=== PATIENT | female | born 1995 | race Caucasian/White ===

== ENCOUNTER 2019-11-06 22:35 | Outpatient (CLI) | payer OTHER, MEDICAID, SELFPAY ==
[2019-11-06 22:56] VITALS: BP 118/67; PULSE 112; TEMP 37.1; O2SAT 99
[2019-11-06 23:05] VITALS: BMI 37.3
--- NOTE | 2019-11-07 07:32 | OB.TRI.PN ---
Progress Notes Date of Service: 11/06/19 Progress Note: pt sees dr elsewhere and presents with 6 contractions in the last hour, no vb of lof. fhts reassuring. no contractions on the monitor, patient appears comfortable per nursing, provided reassurance of stability and recommend fu with her regular provider - Problem List (1) contractions Status: Acute
== END 2019-11-06 23:59 | disposition home or self-care (01) ==
PROVIDERS: Referring Provider Obstetrics & Gynecology; Visit Provider Obstetrics & Gynecology
DX: O62.9 Abnormality of forces of labor, unspecified (principal); Z3A.00 Weeks of gestation of pregnancy not specified
CPT/HCPCS: 59025; 59050; 94760; 99218; G0378

== ENCOUNTER 2022-06-18 12:30 | Outpatient (RCR) | payer MEDICAID, SELFPAY ==
--- NOTE | 2022-05-25 14:37 | HP.PTEVAL ---
Patient's Visit Information FLAQUITO RICHARD is a 27 year old F referred to Physical Therapy by NAZ Fu with a diagnosis of PFS L. Date of Evaluation: 05/25/22 Physical Therapist: Alton Vu, ROSST, OCS, CSCS - Visit Plan Frequency: 3x /Week Duration: 2-4 Weeks Plan: 3x/week for 3-4 weeks for. 1. ITB rollout and stretch L. 2. hip and core strength to HEP quickly. 3. general machine based strength program for posture, hips, LE and core adn progress to I in gym as patient will join a gym. Monitor need for orthotics. - Subjective L knee was wanting to give out. Sharp pain and for several weeks now, insidious. No pattern to it. Activities are normal. 0-8/10 pain and transient. Not happened in a week. Got brace form doctor and it helps. usually was every couple days. 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 Not limiting at work right now. Sleep is not a problem. Basic aDLs are good. has two steps at hoome and not a problem. - Pain L knee pain Pain Intensity (Out of 10): 0 Pain Intensity Range: 0, 8 Comment: sometimes lingers 10 seconds. - Objective L pes planus >R moderately. Walks normal today without gait deviations. Steps reciprocal with one rail. Transfers I. - ant drawer. - bounce home. slight + L patellar grind. B knee AROM WFL and without pain. Hip arom WFL. reflexes 2/3 patella and achilles. Sensation LE WNL to gross light touch. has obvious weakness in core and hip rotators as she IR with resisted hip flexion. 3+ hip rotations, 3+ abduction adn extension. Knee ext not painful today and 4-/5 B flexion 4-. ankles 4+/5. Not able to ellicit pain today but patient has obvious hip and core weakness leading to malrotation at hip combined with pes planus L and tight ITB creating PFS. - Balance/Special Test Scores Lower Extremity Functional Score: 66 - Goals Goal 1:: Pain in L knee abolished for 2 weeks Goal Time Frame: 2-4 Weeks Goal 2:: Patient I in ITB stretch, hip and core strength and overall general ex for health of body Goal Time Frame: 4-6 Weeks Goal 3:: Pt feel 100% back to normal knee Goal Time Frame: 4-6 Weeks Goal 4:: LEFS 72 Goal Time Frame: 4-6 Weeks - Rehabilitation Potential Physical Therapy Diagnosis: l knee pain PFS. Rehabilitation Potential: Good - Anticipated Interventions Patient/Client Instruction: Educate patient on: Condition, Plan of Care For the Purpose of:: To decrease pain, To increase ROM, To improve nutrient delivery to tissue, To improve muscle performance and motor function, To increase tolerance to activity/condition/position Therapeutic Exercise to Include: Strength training, Postural training, Flexibilty training, Dynamic Lumbar Stabilization For the Purpose of:: To decrease pain, To increase ROM, To improve nutrient delivery to tissue, To improve muscle performance and motor function Manual Therapy Techniques to Include: Soft tissue mobilization For the Purpose of:: To decrease pain, To improve nutrient delivery to tissue, To improve muscle performance and motor function, To increase tolerance to activity/condition/position Thank you for the opportunity to evaluate your patient. For Medicare and Medicare HMO plans, please review the plan of care and approve it. It will need to be FAXED BACK to us at [phone] for Medicare purposes. For Medicare only, by signing this I certify the plan of care. Please let me know if there are questions or concerns regarding this plan of care. Physician Signature: Date:
--- NOTE | 2022-06-18 13:19 | HP.PTDCSUM ---
It has been my pleasure to treat FLAQUITO RICHARD referred by NAZ Fu, with the diagnosis of Left PFS for a total of 8 visit(s). Discharge Date: 06/18/22 Please see the following information for a summary of their discharge status. Subjective: It's helping. I am getting stronger and I need to join which I will. Has not had any giving out lately. Pain is not an issue. L knee pain Pain Intensity (Out of 10): 0 % Improvement: 100 Objective/Function: Full aROM without pain, walking normal, jogging well, jumping and squattign without pain. Goal 1:: Pain in L knee abolished for 2 weeks Goal Progress: Goal Met Goal 2:: Patient I in ITB stretch, hip and core strength and overall general ex for health of body Goal Progress: Goal Met Goal 3:: Pt feel 100% back to normal knee Goal Progress: Goal Met Goal 4:: LEFS 72 Goal Progress: Goal Met Plan: d/c to HEP If there are questions or concerns regarding this patient's physical therapy, please feel free to call me at [phone]. Thank you for the referral of this patient. Sincerely, Alton Vu, DPT, OCS, CSCS Balance/Gait/Functional tests - Balance/Special Test Scores Lower Extremity Functional Score: 72
== END 2022-06-18 13:35 | disposition home or self-care (01) ==
LOC: PT 12:30
PROVIDERS: PCP Nurse Practitioner Family
DX: M22.2X2 Patellofemoral disorders, left knee (principal)
CPT/HCPCS: 97110; 97161; 97164

== ENCOUNTER 2022-07-09 11:31 | Outpatient (RCR) | payer MEDICAID, SELFPAY ==
--- NOTE | 2022-07-09 12:21 | HP.PTEVAL_ITS ---
Patient's Visit Information FLAQUITO RICHARD is a 27 year old F referred to Physical Therapy by Dr. Denton Hansen DO with a diagnosis of SACRAL SPRAIN. Date of Evaluation: 07/09/22 Physical Therapist: Jovana Alan, PT, Cert MDT - Visit Plan Frequency: 2-3x /Week Duration: 4-6 Weeks Plan: *CHECK AUTH NEXT VISIT: RECORD # OF VISITS APPROVED AND EXPIRATION DATE. CHECK CODES APPROVED WITH POC*. POSTURE CORRECTION/STRENGTHENING, INSTRUCTION IN APPROPRIATE BODY MECHANICS AND ACTIVITY MODIFICATIONS. DLS STARTING WITH A NEUTRAL SPINE PROGRESSING ROM TOLERATED. CISCO LE ROM, STRETCHING AND STRENGTHENING. HEP INSTRUCTION. 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 Disability: NO. Present symptoms: LOW BACK PAIN AND TAILBONE AREA PAIN. SOME L HIP PAIN AT TIMES BUT VERY MILD. Present since: ABOUT 3 WKS OR SO AGO. Pain Scale: WORST 9/10, LEAST 0/10. Currently: 5/10. Is it getting better, worse or staying the same: STAYING THE SAME. Commenced as a result of: NO APPARENT REASON. Symptoms at onset: SAME BUT MORE MILD AT ONSET. Worse: LAYING IN BED, PROLONGED SITTING, SOMETIMES PUTTING SHOES AND SOCKS AND PANTS ON, LIFTING AT WORK, SITTING ON ANYTHING HARD. ICE. SITTING ON BIKE SEAT. Better: STANDING AND WALKING. Disturbed sleep: YES. Previous history/Previous treatment: EPISODIC LBP SELF MANAGED. SOME L HIP PAIN IN CHILDHOOD - DX'D WITH LEG LENGTH discrepancy TREATED BY CHIROPRACTOR A LONG TIME AGO. Treatment this episode: CONSULT W/DR. HANSEN. PT REFERRAL. Coughing/sneezing/straining: NEGATIVE. Gait: NORMAL. Bowel or Bladder Dysfunction: NO. Accidents: NO. Unexplained weight loss: NO. Imaging: RECENT BACK, PELVIC AND HIP X-RAYS - NORMAL - SEE [facility] EMR AND DR. HANSEN'S NOTE. PMH/Recent major surgery: RECENT H/O L KNEE PAIN RESOLVED WITH PT. - Objective Sitting/Standing Posture: FAIR. FH. RSH'S. Lordosis: NORMAL. Lateral shift: NO. Relevant shift: N/A. Active Correction of posture: NE IN STANDING. Other Observations: INDEP GAIT AND TRANSFERS WITH NO GROSS DEVIATIONS NOTED. Sensory deficit: CISCO LE LIGHT TOUCH SENSATION GROSSLY INTACT AND SYMMETRICAL. ROM deficit: CISCO LE'S WFL BUT MILD HS AND GASTROC-SOLEUS COMPLEX TIGHTNESS. Motor deficit: 5/5 CISCO LE'S. Reflexes: 2/3 CISCO LE'S. Dural Signs: NEGATIVE CISCO LE'S. Lumbar mvmt loss: flex - NIL. ext - NIL. R SG - NIL. L SG - NIL. PATIENT C/O MILD TAILBONE AREA PAIN WITH LUMBAR EXTENSION AND L SG ROM TESTING. RESOLVES QUICKLY. Core strength: POOR. Palpation: MILD TENDERNESS WTIH PALPATION OF L345S1 REGIONS AND PARASPINAL MUSCLE SPASMS. TENDERNESS OF TAILBONE REGION WELL. TREATMENT: NEUROMUSCULAR REEDUCATION - INTRO TO RETRAINING OF MVMT AND POSTURE FOR SITTING, LYING AND STANDING ACTIVITIES. - Balance/Special Test Scores Oswestry Low Back Score: 11 - Goals Goal 1:: DECREASE C/O LOW BACK AND TAILBONE PAIN Goal Time Frame: 4-6 Weeks Goal 2:: IMPROVE PERSONAL CARE, LIFTING, SITTING, SLEEP, AND WORK/HOMEMAKING FUNCTION Goal Time Frame: 4-6 Weeks Goal 3:: INSTRUCT IN PROPHYLAXIS Goal Time Frame: 4-6 Weeks - Anticipated Interventions Patient/Client Instruction: Educate patient on: Condition, Plan of Care, Risk Factors For the Purpose of:: To improve self management Therapeutic Exercise to Include: Strength training, Body mechanics, Postural training, Flexibilty training, Neuromotor development, In an aquatic setting, Dynamic Lumbar Stabilization For the Purpose of:: To decrease pain, To increase ROM, To improve muscle performance and motor function, To increase tolerance to activity/condition/position, To improve ability of physical actions for h ome/community/work/leisure Ultrasound (thermal/non thermal): Yes For the Purpose of:: To improve nutrient delivery to tissue Thank you for the opportunity to evaluate your patient. For Medicare and Medicare HMO plans, please review the plan of care and approve it. It will need to be FAXED BACK to us at [phone] for Medicare purposes. For Medicare only, by signing this I certify the plan of care. Please let me know if there are questions or concerns regarding this plan of care. Physician Signature: Date:
--- NOTE | 2022-07-09 12:22 | HP.PTEVAL_ITS ---
Patient's Visit Information FLAQUITO RICHARD is a 27 year old F referred to Physical Therapy by Dr. Denton Hansen DO with a diagnosis of SACRAL SPRAIN. Date of Evaluation: 07/09/22 Physical Therapist: Jovana Alan, PT, Cert MDT - Visit Plan Frequency: 2-3x /Week Duration: 4-6 Weeks Plan: *CHECK AUTH NEXT VISIT: RECORD # OF VISITS APPROVED AND EXPIRATION DATE. CHECK CODES APPROVED WITH POC*. AQUATIC THERAPY FOR PAIN RELIEF, POSTURE CORRECTION/STRENGTHENING, INSTRUCTION IN APPROPRIATE BODY MECHANICS AND ACTIVITY MODIFICATIONS. DLS STARTING WITH A NEUTRAL SPINE PROGRESSING ROM TOLERATED. CISCO LE ROM, STRETCHING AND STRENGTHENING. HEP INSTRUCTION. 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 Present symptoms: LOW BACK PAIN AND TAILBONE AREA PAIN. SOME L HIP PAIN AT TIMES BUT VERY MILD. Present since: ABOUT 3 WKS OR SO AGO. Pain Scale: WORST 9/10, LEAST 0/10. Currently: 5/10. Is it getting better, worse or staying the same: STAYING THE SAME. Commenced as a result of: NO APPARENT REASON. Symptoms at onset: SAME BUT MORE MILD AT ONSET. Worse: LAYING IN BED, PROLONGED SITTING, SOMETIMES PUTTING SHOES AND SOCKS AND PANTS ON, LIFTING AT WORK, SITTING ON ANYTHING HARD. ICE. SITTING ON BIKE SEAT. Better: STANDING AND WALKING. Disturbed sleep: YES. Previous history/Previous treatment: EPISODIC LBP SELF MANAGED. SOME L HIP PAIN IN CHILDHOOD - DX'D WITH LEG LENGTH discrepancy TREATED BY CHIROPRACTOR A LONG TIME AGO. Treatment this episode: CONSULT W/DR. HANSEN. PT REFERRAL. Coughing/sneezing/straining: NEGATIVE. Gait: NORMAL. Bowel or Bladder Dysfunction: NO. Accidents: NO. Unexplained weight loss: NO. Imaging: RECENT BACK, PELVIC AND HIP X-RAYS - NORMAL - SEE [facility] EMR AND DR. HANSEN'S NOTE. PMH/Recent major surgery: RECENT H/O L KNEE PAIN RESOLVED WITH PT. - Objective Sitting/Standing Posture: FAIR. FH. RSH'S. Lordosis: NORMAL. Lateral shift: NO. Relevant shift: N/A. Active Correction of posture: NE IN STANDING. Other Observations: INDEP GAIT AND TRANSFERS WITH NO GROSS DEVIATIONS NOTED. Sensory deficit: CISCO LE LIGHT TOUCH SENSATION GROSSLY INTACT AND SYMMETRICAL. ROM deficit: CISCO LE'S WFL BUT MILD HS AND GASTROC-SOLEUS COMPLEX TIGHTNESS. Motor deficit: 5/5 CISCO LE'S. Reflexes: 2/3 CISCO LE'S. Dural Signs: NEGATIVE CISCO LE'S. Lumbar mvmt loss: flex - NIL. ext - NIL. R SG - NIL. L SG - NIL. PATIENT C/O MILD TAILBONE AREA PAIN WITH LUMBAR EXTENSION AND L SG ROM TESTING. RESOLVES QUICKLY. Core strength: POOR. Palpation: MILD TENDERNESS WTIH PALPATION OF L345S1 REGIONS AND PARASPINAL MUSCLE SPASMS. TENDERNESS OF TAILBONE REGION WELL. TREATMENT: NEUROMUSCULAR REEDUCATION - INTRO TO RETRAINING OF MVMT AND POSTURE FOR SITTING, LYING AND STANDING ACTIVITIES. - Balance/Special Test Scores Oswestry Low Back Score: 11 - Goals Goal 1:: DECREASE C/O LOW BACK AND TAILBONE PAIN Goal Time Frame: 4-6 Weeks Goal 2:: IMPROVE PERSONAL CARE, LIFTING, SITTING, SLEEP, AND WORK/HOMEMAKING FUNCTION Goal Time Frame: 4-6 Weeks Goal 3:: INSTRUCT IN PROPHYLAXIS Goal Time Frame: 4-6 Weeks - Anticipated Interventions Patient/Client Instruction: Educate patient on: Condition, Plan of Care, Risk Factors For the Purpose of:: To improve self management Therapeutic Exercise to Include: Strength training, Body mechanics, Postural training, Flexibilty training, Neuromotor development, In an aquatic setting, Dynamic Lumbar Stabilization For the Purpose of:: To decrease pain, To increase ROM, To improve muscle performance and motor function, To increase tolerance to activity/condition/position, To improve ability of physical actions for home/community/work/leisure Ultrasound (thermal/non thermal): Yes For the Purpose of:: To improve nutrient delivery to tissue Thank you for the opportunity to evaluate your patient. For Medicare and Medicare HMO plans, please review the plan of care and approve it. It will need to be FAXED BACK to us at [phone] for Medicare purposes. For Medicare only, by signing this I certify the plan of care. Please let me know if there are questions or concerns regarding this plan of care. Physician Signature: Date:
--- NOTE | 2022-08-20 16:01 | HP.PT.NRP ---
FLAQUITO RICHARD was seen in my office for initial evaluation on 07/09/22. The following Plan of Care was established for this patient: Initial Frequency: 2-3x /Week Initial Duration: 4-6 Weeks Patient/Client Instruction: Educate patient on: Condition, Plan of Care, Risk Factors For the Purpose of:: To improve self management Therapeutic Exercise to Include: Strength training, Body mechanics, Postural training, Flexibilty training, Neuromotor development, In an aquatic setting, Dynamic Lumbar Stabilization For the Purpose of:: To decrease pain, To increase ROM, To improve muscle performance and motor function, To increase tolerance to activity/condition/position, To improve ability of physical actions for home/community/work/leisure Ultrasound (thermal/non thermal): Yes For the Purpose of:: To improve nutrient delivery to tissue This patient was last seen in our office . Pertinent comments regarding their Physical therapy will appear below: This patient has not returned to Physical Therapy since initial eval and is appropriate to return to MD for further follow-up as needed. At this point I will be discontinuing this patient from physical therapy. I would be happy to see this patient again in the future if found appropriate by the physician. Thank you! Jovana Alan, PT, Cert MDT Balance/Gait/Functional tests - Balance/Special Test Scores Oswestry Low Back Score: 11
== END 2022-07-09 19:00 | disposition home or self-care (01) ==
LOC: PT 11:31
PROVIDERS: PCP Nurse Practitioner Family; Referring Provider Orthopaedic Surgery; Visit Provider Orthopaedic Surgery
DX: S33.8XXA Sprain of other parts of lumbar spine and pelvis, initial encounter (principal)
CPT/HCPCS: 97112; 97161

== ENCOUNTER → 2024-01-01 | Outpatient (CLI) | payer MEDICAID, SELFPAY | END | disposition home or self-care (01) | LOC: PSN 09:20 | PROVIDERS: PCP Nurse Practitioner Family; Referring Provider Nurse Practitioner Family; Visit Provider Nurse Practitioner Family | DX: I26.99 Other pulmonary embolism without acute cor pulmonale (principal); R06.02 Shortness of breath | CPT/HCPCS: 94060; 94726; 94729 ==

== ENCOUNTER → 2024-04-21 | Outpatient (CLI) | payer MEDICAID, SELFPAY ==
[2024-04-21 14:15] VITALS: PULSE 100; PULSE 102; PULSE 103; PULSE 104; PULSE 96; PULSE 97; O2SAT 100; O2SAT 93; O2SAT 94; O2SAT 95; O2SAT 96; O2SAT 97; O2SAT 98
--- NOTE | 2024-04-27 12:00 | WT_ITS ---
PSN 6 Minute Walk Test 6 Minute Walk Test 6 Minute Walk Test: 6 Minute Walk Test PSN:6-Minute Walk Test Start: 04/21/24 14:14 Freq: Status: Active Protocol: [id number] Document 04/21/24 14:15 JR (Rec: 04/21/24 14:17 JR [id number]) 6 Minute Walk Test Date Performed 04/21/24 Time Performed 14:00 Height 5 ft 6 in Weight: 220 lb Weight in Pounds [address]: kiran Assistive device None used: Pre-test Oxygen Delivery Room Air Method Pulse Ox (%) 100 Pulse Rate (60-100 96 beats/min) Dyspnea Paolo Scale ( 0 0-10) Exertion Paolo Scale 6 (6-20) 1st minute Oxygen Delivery Room Air Method Pulse Ox (%) 93 Pulse Rate (60-100 103 H beats/min) 2nd minute Oxygen Delivery Room Air Method Pulse Ox (%) 94 Pulse Rate (60-100 96 beats/min) 3rd minute Oxygen Delivery Room Air Method Pulse Ox (%) 95 Pulse Rate (60-100 104 H beats/min) 4th minute Oxygen Delivery Room Air Method Pulse Ox (%) 96 Pulse Rate (60-100 102 H beats/min) 5th minute Oxygen Delivery Room Air Method Pulse Ox (%) 98 Pulse Rate (60-100 100 beats/min) 6th minute Oxygen Delivery Room Air Method Pulse Ox (%) 97 Pulse Rate (60-100 97 beats/min) Dyspnea Paolo Scale ( 3 0-10) Exertion Paolo Scale 11 (6-20) Post-test Oxygen Delivery Room Air Method Pulse Ox (%) 98 Pulse Rate (60-100 96 beats/min) Full Laps Walked 20 Partial Lap, Number 0 of Tiles Walked Total Distance 1180 Walked (ft) Interpretation Interpretation: The patient ambulated 1180 feet over the course of 6 minutes beginning on room air without assistive devices. Pretesting oxygen saturation was noted to be 100 % on room air. With ambulation, the minda oxygen saturation was 93%. This represents a significant exertional oxygen desaturation. Recommendations Recommendations: There is no indication for the use of supplemental oxygen at this time. However, close interval follow-up is recommended, given the degree of oxygen desaturation noted during the study.
== END | disposition home or self-care (01) ==
LOC: PSN 13:51
PROVIDERS: Referring Provider Internal Medicine Critical Care Medicine; Visit Provider Internal Medicine Critical Care Medicine
DX: R06.02 Shortness of breath (principal)
CPT/HCPCS: 94618